=== PATIENT | male | born 1970 ===

== ENCOUNTER 2016-06-12 09:43 | Outpatient (CLI) | payer OTHER ==
--- NOTE | 2016-06-13 09:04 | Cat Scan Report ---
CT LUMBAR SPINE WITHOUT CONTRAST (CT DISCOGRAM): 06/12/16 CLINICAL: Lumbar disc disease without myelopathy. TECHNIQUE: Disc injections were performed at L2-3, L3-4, L4-5 and L5-S1 by Dr. Madrid prior to the CT. Volumetric acquisition and 1.25-mm axial scan reconstructions without contrast. Sagittal and coronal reformats were performed.The injected discs were graded according to the Modified [place] Classification. FINDINGS: Normal vertebral body height, alignment and disk spaces. No fracture or subluxation. L1-2:Intact. L2-3:Intact. Grade 0. L3-4:Mild circumferential disc bulge. Grade 5 left posterolateral extravasation. Extra-annular contrast extravasation extends into the left neural foramen. L4-5:Moderate circumferential disc bulge. Grade 5 right posterolateral extravasation with a small volume of extra-annular contrast. L5-S1:Mild circumferential disc bulge. Grade 2 right posterolateral extravasation. IMPRESSION: Degenerative disc disease with disc bulges, annular tears and contrast extravasation at L3-4, L4-5 and L5-S1.
== END 2016-06-12 09:44 | disposition home or self-care (01) ==
LOC: SPVIMAG 09:43
PROVIDERS: ATTEND Physical Medicine & Rehabilitation
DX: M51.26 Other intervertebral disc displacement, lumbar region (principal)
CPT/HCPCS: 72131